=== PATIENT | female | born 2000 | race Two or more races ===

== ENCOUNTER 2019-06-02 17:32 | Emergency (ER) | payer MEDICAID, OTHER ==
[~2019-06-02] VITALS: Ht 157.5 cm; Wt 113.4 kg
[2019-06-02 18:34] LABS: Urine Amorphous Crystal FEW /hpf (None Seen); Urine Bacteria NONE SEEN /hpf (None Seen); Urine Blood 2+ /uL (Negative); Urine Mucus FEW (None Seen); Urine Specific Gravity 1.046 (1.001-1.035); Urine WBC 3 /hpf (0 - 5)
[2019-06-02 19:44] VITALS: BP 119/69
[2019-06-02] MEDS ORDERED: IBUPROFEN 800 MG TAB PO ONE (21:00)
== END 2019-06-02 21:26 | disposition home or self-care (01) ==
LOC: ER 17:42
DX: S63.501A Unspecified sprain of right wrist, initial encounter (principal); N39.0 Urinary tract infection, site not specified; W22.8XXA Striking against or struck by other objects, initial encounter; Y93.89 Activity, other specified; Y99.8 Other external cause status; Y92.89 Other specified places as the place of occurrence of the external cause
CPT/HCPCS: 73110; 81001